=== PATIENT | male | born 1995 | race African-American/Black ===

== ENCOUNTER 2019-07-14 15:46 | Emergency (ER) | payer OTHER ==
--- NOTE | 2019-07-14 18:41 | ED Physician Documentation ---
PD HPI MALE - Stated complaint Stated Complaint: MALE - Chief complaint Chief Complaint: General - History obtained from History obtained from: Patient - History of Present Illness Timing - onset: Today Timing - duration: Days (1) Timing - details: Abrupt onset, Still present Associated symptoms: Urinary frequency, Discharge. No: Dysuria, Genital sore / lesion, Back pain PD HPI MALE CONTRIB FACTORS: Sexually active, Other (had new sexual partner recently, without apparent STDs.) Similar symptoms before: Has not had sx before Review of Systems Constitutional: denies: Fever, Chills Throat: denies: Sore throat GI: denies: Abdominal Pain, Nausea, Vomiting : reports: Frequency, Discharge. denies: Dysuria Skin: denies: Rash PD PAST MEDICAL HISTORY - Past Medical History Cardiovascular: None Respiratory: None : None - Allergies Allergies/Adverse Reactions: Allergies Allergy/AdvReac Type Severity Reaction Status Date / Time No Known Drug Allergies Allergy Verified 07/14/19 16:03 PD ED PE NORMAL - Vitals Vital signs reviewed: Yes - General General: Alert and oriented X 3, Well developed/nourished - Abdomen Abdomen: Soft, Non tender - Male Male : Deferred - Rectal Rectal: Deferred - Back Back: No CVA TTP Results - Vitals Vitals: Vital Signs - 24 hr 07/14/19 07/14/19 16:03 19:33 Temperature 36.8 C 36.9 C Heart Rate 93 96 Respiratory 17 16 Rate Blood Pressure 126/84 H 123/78 O2 Saturation 98 97 Oxygen O2 Source Room air - Labs Labs: Laboratory Tests 07/14/19 16:15 Chlam trachomat DNA PCR POSITIVE A N.gonorrhoeae DNA (PCR) POSITIVE A T. vaginalis (PCR) TNP PD MEDICAL DECISION MAKING - ED course Complexity details: reviewed results (the urine results came back hours after he was discharged, and was positive for GC and chlamydia. Had been treated for these. Nurse will call him though to confirm Dx and advise him to contact his sexual partners. ), considered differential, d/w patient Departure - Departure Disposition: 01 Home, Self Care Clinical Impression: Urethritis Condition: Stable Record reviewed to determine appropriate education?: Yes Instructions: ED STD Male Treated Follow-Up: CANDELARIO Luke [Provider Group] Comments: The urine test has not resulted and may be several more hours or into tomorrow. We have treated you for the common STIs. We will call you if we need to add any antibiotics based on the urine test results. Right now you are covered for chlamydia and gonorrhea. Symptoms should improve over the next couple of days. Discharge Date/Time: 07/14/19 19:33
[2019-07-14] MEDS ORDERED: LIDOCAINE 1% 2 ML VIAL MC ONE (18:49)
[2019-07-14] MEDS ORDERED: cefTRIAXone 1 GM VIAL IM STA (18:49)
[2019-07-14] MEDS ORDERED: AZITHROMYCIN 250 MG TABLET PO STA (18:49)
[2019-07-14 19:34] VITALS: BP 123/78
== END 2019-07-14 19:33 | disposition home or self-care (01) ==
LOC: ED 15:46
DX: N34.2 Other urethritis (principal)
CPT/HCPCS: 87491; 87591; 96372; 99283; A9270; 87661

== ENCOUNTER 2019-12-10 01:17 | Emergency (ER) | payer OTHER ==
--- NOTE | 2019-12-10 01:53 | ED Physician Documentation ---
PD HPI MALE - Stated complaint Stated Complaint: MALE - Chief complaint Chief Complaint: General - History obtained from History obtained from: Patient - History of Present Illness Timing - onset: How many days ago (2) Timing - duration: Days (2) Timing - details: Gradual onset, Still present Associated symptoms: Dysuria, Discharge (clear watery to white). No: Genital sore / lesion, Testiclar pain, Scrotal swelling PD HPI MALE CONTRIB FACTORS: Sexually active (had used condoms, so felt safe from STDs.) Similar symptoms before: Diagnosis (had chlamydia in the past) Recently seen: Not recently seen Review of Systems Constitutional: denies: Fever, Chills Throat: denies: Oral lesions / sores, Sore throat GI: denies: Abdominal Pain, Nausea, Vomiting : reports: Dysuria, Discharge. denies: Hematuria Skin: denies: Rash, Lesions PD PAST MEDICAL HISTORY - Past Medical History Cardiovascular: None Respiratory: None Neuro: None Endocrine/Autoimmune: None GI: None : None HEENT: None Psych: Depression Musculoskeletal: None Derm: None - Past Surgical History Past Surgical History: No - Present Medications Home Medications: Ambulatory Orders Medication Instructions Recorded Confirmed No Known Home Medications 12/10/19 12/10/19 - Allergies Allergies/Adverse Reactions: Allergies Allergy/AdvReac Type Severity Reaction Status Date / Time No Known Drug Allergies Allergy Verified 07/14/19 16:03 - Social History Does the pt smoke?: No Smoking Status: Never smoker Does the pt drink ETOH?: Yes Does the pt have substance abuse?: No PD ED PE NORMAL - Vitals Vital signs reviewed: Yes - General General: Alert and oriented X 3, No acute distress, Well developed/nourished - Abdomen Abdomen: Soft, Non tender - Male Male : Other (no scrotal swelling nor tenderness. No inguinal adenopathy. Penis without sores nor redness. Minimal meatal clear watery discharge. ) - Rectal Rectal: Deferred - Back Back: No CVA TTP - Derm Derm: Normal color, Warm and dry Results - Vitals Vitals: Vital Signs - 24 hr 12/10/19 12/10/19 01:25 03:00 Temperature 36.2 C L 36.5 C Heart Rate 70 72 Respiratory 16 16 Rate Blood Pressure 123/80 127/90 H O2 Saturation 98 99 Oxygen O2 Source Room air PD MEDICAL DECISION MAKING - ED course Complexity details: considered differential (most likely chlamydia and will treat empirically. Swab obtained from meatus. ), d/w patient Departure - Departure Disposition: 01 Home, Self Care Clinical Impression: Urethritis Condition: Stable Record reviewed to determine appropriate education?: Yes Instructions: ED Urethritis Infec Vs Inflam Male Follow-Up: CANDELARIO Dickersonashley Luke [Provider Group] Comments: The urethral culture will result in a day or 2. We treated you for chlamydia and gonorrhea in case. These are likely causes. We will call you with the culture result if we need to add any other medicines. I would anticipate improvement in your symptoms over the next couple of days. Discharge Date/Time: 12/10/19 03:00
[2019-12-10] MEDS ORDERED: cefTRIAXone 1 GM VIAL IM STA (02:17)
[2019-12-10] MEDS ORDERED: LIDOCAINE 1% 2 ML VIAL MC ONE (02:17)
[2019-12-10] MEDS ORDERED: AZITHROMYCIN 250 MG TABLET PO STA (02:17)
[2019-12-10 03:47] VITALS: BP 127/90
== END 2019-12-10 03:00 | disposition home or self-care (01) ==
LOC: ED 01:17
DX: A56.01 Chlamydial cystitis and urethritis (principal)
CPT/HCPCS: 87491; 87591; 96372; 99283; A9270; 87661

== ENCOUNTER 2019-12-23 05:28 | Outpatient (CLI) | payer OTHER | END 2019-12-23 05:29 | disposition home or self-care (01) | LOC: LAB 05:28 | PROVIDERS: ATTEND Pathology Blood Banking & Transfusion Medicine | DX: Z53.9 Procedure and treatment not carried out, unspecified reason (principal) ==

== ENCOUNTER 2020-02-05 23:11 | Emergency (ER) | payer OTHER ==
[2020-02-05 23:23] VITALS: BP 139/79
[2020-02-05 23:37] LABS: BILIRUBIN,URINE NEGATIVE (NEGATIVE); GLUCOSE, URINE (UA) NEGATIVE (NEGATIVE); KETONES,URINE (UA) NEGATIVE (NEGATIVE); LEUKOCYTE ESTERASE, URINE NEGATIVE (NEGATIVE); NITRITE,URINE NEGATIVE (NEGATIVE); OCCULT BLOOD,URINE NEGATIVE (NEGATIVE); PROTEIN,URINE NEGATIVE (NEGATIVE); UROBILINOGEN,URINE 1 (NORMAL) E.U./dL (NORMAL)
[2020-02-05 23:39] LABS: CLARITY,URINE CLEAR (CLEAR)
--- NOTE | 2020-02-06 00:01 | ED Physician Documentation ---
PD HPI MALE - Stated complaint Stated Complaint: STRINGY PEE - Chief complaint Chief Complaint: General - History obtained from History obtained from: Patient - History of Present Illness Timing - onset: How many days ago (few days of noting some clumps or stringy mucous in his urine. Concerned about infection. Denies dysuria. No penile discharge.) Timing - duration: Weeks (has noted it intermittent the past 3 weeks. Improves when drinks more fluids, but has not gone away.) Timing - details: Intermittant Associated symptoms: No: Dysuria, Genital sore / lesion, Testiclar pain, Scrotal swelling PD HPI MALE CONTRIB FACTORS: Sexually active (not for few months) Similar symptoms before: Has not had sx before Recently seen: Clinic (follow up of head injury that occurred few months prior.) Review of Systems Constitutional: denies: Fever, Chills Nose: denies: Rhinorrhea / runny nose, Congestion Throat: denies: Sore throat Respiratory: denies: Cough GI: denies: Abdominal Pain : reports: Hematuria (or at least he is concerned about that, and about infection). denies: Dysuria, Frequency, Discharge PD PAST MEDICAL HISTORY - Past Medical History Past Medical History: No Cardiovascular: None Respiratory: None Neuro: None Endocrine/Autoimmune: None GI: None : None HEENT: None Psych: Depression Musculoskeletal: None Derm: None - Past Surgical History Past Surgical History: No - Present Medications Home Medications: Ambulatory Orders Medication Instructions Recorded Confirmed No Known Home Medications 12/10/19 12/10/19 - Allergies Allergies/Adverse Reactions: Allergies Allergy/AdvReac Type Severity Reaction Status Date / Time No Known Drug Allergies Allergy Verified 02/05/20 23:23 - Social History Does the pt smoke?: No Smoking Status: Never smoker Does the pt drink ETOH?: Yes Does the pt have substance abuse?: No - Immunizations Immunizations are current?: Yes - POLST Patient has POLST: No Results - Vitals Vitals: Vital Signs - 24 hr 02/05/20 02/06/20 23:21 00:27 Temperature 36.9 C Heart Rate 93 Respiratory 16 16 Rate Blood Pressure 139/79 H O2 Saturation 96 Oxygen O2 Source Room air - Labs Labs: Laboratory Tests 02/05/20 23:20 Urine Color YELLOW Urine Clarity CLEAR Urine pH 8.0 H Ur Specific [place] 1.020 Urine Protein NEGATIVE Urine Glucose (UA) NEGATIVE Urine Ketones NEGATIVE Urine Occult Blood NEGATIVE Urine Nitrite NEGATIVE Urine Bilirubin NEGATIVE Urine Urobilinogen 1 (NORMAL) Ur Leukocyte Esterase NEGATIVE Ur Microscopic Review NOT INDICATED Urine Culture Comments NOT INDICATED PD MEDICAL DECISION MAKING - ED course Complexity details: reviewed results (normal. no signs of infection. ), considered differential (eval for infection.), d/w patient Departure - Departure Disposition: 01 Home, Self Care Clinical Impression: Urine abnormality Condition: Stable Record reviewed to determine appropriate education?: Yes Follow-Up: CANDELARIO Luke [Provider Group] Comments: There is no signs of brewster in the initial urinalysis. The culture from the penis will result in 1 or 2 days we will call you if there is any signs of infection. Otherwise I assume some of the stringiness is just sediment (cells from the lining of the bladder clumping up). Stay well-hydrated and presumably this will clear up. Discharge Date/Time: 02/06/20 00:27
== END 2020-02-06 00:27 | disposition home or self-care (01) ==
LOC: ED 23:11
DX: R82.998 Other abnormal findings in urine (principal)
CPT/HCPCS: 81001; 81003; 81599; 87086; 87491; 87591; 87661; 99283; 99284

== ENCOUNTER 2020-05-17 12:48 | Outpatient (CLI) | payer OTHER ==
--- NOTE | 2020-05-19 09:06 | MRI Report ---
PROCEDURE: Brain W/O INDICATIONS: CONCUSSION W/O LOSS OF CONSCIOUSNESS TECHNIQUE: Noncontrast axial T1 spin echo, axial T2 fast spin echo, sagittal and axial FLAIR, coronal T2 fast sp in echo, axial gradient echo, axial diffusion and ADC through the brain. COMPARISON: None. FINDINGS: Image quality: Excellent. CSF Spaces: Basal cisterns are patent. No extra-axial fluid collections. Ventricles are normal in size and shape. Brain: No intracranial masses or hemorrhage. Rodriguez/white matter interface is normal. Brainstem appe ars normal. Diffusion-weighted images demonstrate no acute ischemic insult. No chronic ischemic ins ults. There are multiple tiny foci of hemosiderin deposition in the scattered distribution, some of w hich are subarachnoid in location. Additionally, on image 14/701, there is a focal anterior left fron foreign deep white matter hemosiderin deposition, and on images 12 through 14 of series 701, there is a r elatively localized, fairly linear area of multifocal hemosiderin deposition. Normal intravascular f low voids are present. Skull and face: Calvarium has normal marrow signal. Orbits appear normal. Sinuses: Sinuses and mastoids are clear. IMPRESSION: 1. There are multifocal areas of tiny foci of hemosiderin deposition, both centered in deep white mat ter structures as well as in a subarachnoid location. Findings may represent sequelae of remote traum a. However, cannot exclude vascular malformations. 2. Otherwise unremarkable study with no evidence of acute stroke, hemorrhage, or mass. Brain parenchy ma is otherwise unremarkable. Comment: Recommend completion of workup of multifocal tiny previous hemorrhage, to include Brain MRI With Contrast, as well as MRA head. Reviewed by: Ricky Boston MD on 05/19/2020 9:05 AM PST Approved by: Ricky Boston MD on 05/19/2020 9:05 AM PST Station ID: [id number]
== END 2020-05-17 12:49 | disposition home or self-care (01) ==
LOC: DI 12:48
PROVIDERS: ATTEND Family Medicine
DX: S06.0X0A Concussion without loss of consciousness, initial encounter (principal)
CPT/HCPCS: 70551

== ENCOUNTER 2021-01-23 20:55 | Emergency (ER) | payer OTHER ==
--- NOTE | 2021-01-23 21:02 | ED Physician Documentation ---
PD HPI MALE - Stated complaint Stated Complaint: MALE - Chief complaint Chief Complaint: General - History obtained from History obtained from: Patient - History of Present Illness Timing - onset: How many days ago (1-2) Timing - details: Gradual onset, Intermittant Pain level now: 0 Associated symptoms: Discharge. No: Dysuria, Urinary frequency, Hematuria, Genital sore / lesion, Testiclar pain, Scrotal swelling Similar symptoms before: Diagnosis (some similarity to previous episode of chlamydia) - Additional information Additional information: c/o 1-2 days of intermittent clear penile discharge. He is sexually active. He has h/o chlamydia and he says the discharge has some similarity to that episode (he says the discharge was more cloudy and frequent with chlamydia, though). Review of Systems Constitutional: denies: Fever GI: reports: Reviewed and negative : reports: Discharge. denies: Dysuria, Frequency, Hematuria Skin: denies: Rash PD PAST MEDICAL HISTORY - Past Medical History Cardiovascular: None Respiratory: None Neuro: None Endocrine/Autoimmune: None GI: None : None HEENT: None Psych: Depression Musculoskeletal: None Derm: None - Past Surgical History Past Surgical History: No - Present Medications Home Medications: Ambulatory Orders Medication Instructions Recorded Confirmed No Known Home Medications 12/10/19 01/23/21 - Allergies Allergies/Adverse Reactions: Allergies Allergy/AdvReac Type Severity Reaction Status Date / Time No Known Drug Allergies Allergy Verified 01/23/21 21:04 - Social History Does the pt smoke?: No Smoking Status: Never smoker Does the pt drink ETOH?: Yes Does the pt have substance abuse?: No - Immunizations Immunizations are current?: Yes - POLST Patient has POLST: No PD ED PE NORMAL - Vitals Vital signs reviewed: Yes - General General: Alert and oriented X 3, No acute distress, Well developed/nourished PD ED PE EXPANDED - Male Male : Circumcised. No: Skin lesions, Discharge (no active discharge noted), Tenderness Results - Vitals Vitals: Vital Signs - 24 hr 01/23/21 01/23/21 21:00 21:56 Temperature 36.1 C L 37.2 C Heart Rate 105 H 77 Respiratory 16 16 Rate Blood Pressure 117/66 111/62 O2 Saturation 98 98 Oxygen O2 Source Room air PD MEDICAL DECISION MAKING - ED course Complexity details: reviewed old records, considered differential, d/w patient ED course: urine sent for GC/chlamydia/trich. Will treat empirically and he is given 500mg IM rocephin, 1000 mg zithromax PO. Departure - Departure Disposition: 01 Home, Self Care Clinical Impression: Urethritis Condition: Good Instructions: ED Urethritis Infec Vs Inflam Male Follow-Up: CANDELARIO Luke [Provider Group] Discharge Date/Time: 01/23/21 21:56
[2021-01-23] MEDS ORDERED: LIDOCAINE 1% 2 ML VIAL MC ONE ×2 (21:21→21:27)
[2021-01-23] MEDS ORDERED: cefTRIAXone 500 MG VIAL IM STA (21:21)
[2021-01-23] MEDS ORDERED: AZITHROMYCIN 250 MG TABLET PO STA (21:22)
[2021-01-23] MEDS ORDERED: cefTRIAXone 1 GM VIAL IM STA (21:27)
[2021-01-23 21:57] VITALS: BP 111/62
[2021-01-24 22:23] LABS: CHLAMYDIA TRACHOMATIS DNA NEGATIVE (NEGATIVE); NEISSERIA GONORRHOEAE DNA NEGATIVE (NEGATIVE)
== END 2021-01-23 21:56 | disposition home or self-care (01) ==
LOC: ED 20:55
DX: N34.2 Other urethritis (principal)
CPT/HCPCS: 87491; 87591; 96372; 99283; A9270; 87661

== ENCOUNTER 2021-05-04 00:39 | Emergency (ER) | payer OTHER ==
[2021-05-04] MEDS ORDERED: cefTRIAXone 250 MG VIAL ONE (02:23)
[2021-05-04] MEDS ORDERED: AZITHROMYCIN 250 MG TABLET PO ONE (02:23)
[2021-05-04] MEDS ORDERED: LIDOCAINE 1% 2 ML VIAL ONE (02:24)
--- NOTE | 2021-05-04 02:39 | ED Physician Documentation ---
History of Present Illness - Stated complaint Stated Complaint: MALE - Chief complaint Chief Complaint: General - History obtained from History obtained from: Patient - Additonal information Additional information: Patient comes emergency department chief complaint of penile discharge. He states that he began to notice the discharge this morning and that has been a white, creamy appearing, steady ooze. No bleeding. Patient states he has had chlamydia before and this seems similar. He has not had any fevers or chills. No abdominal pain. Minimal dysuria. He does not know of any sexual partner that has had symptoms of sexually transmitted disease. No other complaints at this time. Review of Systems Ten Systems: 10 systems reviewed and negative Constitutional: reports: Reviewed and negative Eyes: reports: Reviewed and negative Ears: reports: Reviewed and negative Nose: reports: Reviewed and negative Throat: reports: Reviewed and negative Cardiac: reports: Reviewed and negative Respiratory: reports: Reviewed and negative GI: reports: Reviewed and negative : reports: Discharge Skin: reports: Reviewed and negative Musculoskeletal: reports: Reviewed and negative Neurologic: reports: Reviewed and negative Psychiatric: reports: Reviewed and negative Endocrine: reports: Reviewed and negative Immunocompromised: reports: Reviewed and negative PD PAST MEDICAL HISTORY - Past Medical History Past Medical History: Yes Cardiovascular: None Respiratory: None Neuro: None Endocrine/Autoimmune: None GI: None : None HEENT: None Psych: Depression Musculoskeletal: None Derm: None Other Past Medical History: Chlamydia - Past Surgical History Past Surgical History: No - Present Medications Home Medications: Ambulatory Orders Medication Instructions Recorded Confirmed No Known Home Medications 12/10/19 05/04/21 - Allergies Allergies/Adverse Reactions: Allergies Allergy/AdvReac Type Severity Reaction Status Date / Time No Known Drug Allergies Allergy Verified 05/04/21 00:49 - Social History Does the pt smoke?: No Smoking Status: Never smoker Does the pt drink ETOH?: Yes Does the pt have substance abuse?: No - Immunizations Immunizations are current?: Yes - POLST Patient has POLST: No PD ED PE NORMAL - Vitals Vital signs reviewed: Yes - General General: Alert and oriented X 3, No acute distress, Well developed/nourished - HEENT HEENT: Atraumatic, PERRL, EOMI, Moist mucous membranes - Neck Neck: Supple, no meningeal sign - Respiratory Respiratory: No respiratory distress - Male Male : Other (Normal male genitalia, circumcised. Whitish discharge noted in the urethral meatus. No penile lesions.) - Derm Derm: Warm and dry - Extremities Extremities: No deformity - Neuro Neuro: Alert and oriented X 3 - Psych Psych: Normal mood, Normal affect Results - Vitals Vitals: Vital Signs - 24 hr 05/04/21 05/04/21 00:40 03:00 Temperature 36.1 C L 36.9 C Heart Rate 98 80 Respiratory 16 16 Rate Blood Pressure 143/97 H 133/75 H O2 Saturation 97 99 Oxygen O2 Source Room air PD MEDICAL DECISION MAKING - ED course Complexity details: considered differential, d/w patient ED course: Patient was worked up with a GC chlamydia trichomonas PCR, and was treated presumptively for gonorrhea and chlamydia with IM Rocephin and single dose Zithromax. We discussed with the patient that he should not have intercourse with anybody that he has slept within the last 3 weeks, until they get treated. He should also let any other sexual partners no of his symptoms so they can get treated and tested also. The patient is advised to have no sexual contact with anybody until his symptoms are completely gone. Departure - Departure Disposition: 01 Home, Self Care Clinical Impression: Urethritis Condition: Stable Discharge Date/Time: 05/04/21 03:00
[2021-05-04] MEDS ORDERED: predniSONE 20 MG TABLET ONE (02:41)
[2021-05-04 03:02] VITALS: BP 133/75
[2021-05-04 04:15] LABS: CHLAMYDIA TRACHOMATIS DNA NEGATIVE (NEGATIVE); NEISSERIA GONORRHOEAE DNA NEGATIVE (NEGATIVE)
== END 2021-05-04 03:00 | disposition home or self-care (01) ==
LOC: ED 00:39
DX: N34.2 Other urethritis (principal)
CPT/HCPCS: 87491; 87591; 96372; 99283; 99284; A9270; J7512; 87661

== ENCOUNTER 2021-05-06 17:53 | Emergency (ER) | payer OTHER ==
[2021-05-06 18:00] VITALS: BP 146/101
[2021-05-06 18:20] LABS: BILIRUBIN,URINE NEGATIVE (NEGATIVE); CLARITY,URINE CLEAR (CLEAR); GLUCOSE, URINE (UA) NEGATIVE (NEGATIVE); KETONES,URINE (UA) NEGATIVE (NEGATIVE); LEUKOCYTE ESTERASE, URINE NEGATIVE (NEGATIVE); NITRITE,URINE NEGATIVE (NEGATIVE); OCCULT BLOOD,URINE NEGATIVE (NEGATIVE); PROTEIN,URINE NEGATIVE (NEGATIVE); UROBILINOGEN,URINE 0.2 (NORMAL) E.U./dL (NORMAL)
--- NOTE | 2021-05-06 19:57 | ED Physician Documentation ---
PD HPI MALE - Stated complaint Stated Complaint: MALE - Chief complaint Chief Complaint: UTI - History obtained from History obtained from: Patient - History of Present Illness Timing - duration: Days (4) Timing - details: Gradual onset Pain level max: 1 Pain level now: 1 Associated symptoms: No: Dysuria, Urinary frequency, Unable to urinate, Hematuria, Genital sore / lesion, Testiclar pain, Scrotal swelling, Abdominal pain, Back pain PD HPI MALE CONTRIB FACTORS: Sexually active - Additional information Additional information: Patient is a 26-year-old male who states that 4 days ago he noticed slight discharge from his penis. He states it was cloudy/milky in color. He does not have any dysuria, no pain with ejaculation. He states that occasionally his ejaculate fluid is more watery than usual and/or has a yellow tint. He has had chlamydia in the past. Patient has been seen here recently for same. He was given Rocephin and azithromycin. States feels better but still has slight discharge and tingling. Review of Systems Constitutional: denies: Fever, Chills Cardiac: denies: Chest pain / pressure Respiratory: denies: Cough GI: denies: Vomiting, Diarrhea Skin: denies: Rash Musculoskeletal: denies: Neck pain, Back pain Neurologic: denies: Headache PD PAST MEDICAL HISTORY - Past Medical History Cardiovascular: None Respiratory: None Neuro: None Endocrine/Autoimmune: None GI: None : None HEENT: None Psych: Depression Musculoskeletal: None Derm: None - Past Surgical History Past Surgical History: No - Present Medications Home Medications: Ambulatory Orders Medication Instructions Recorded Confirmed Doxycycline Monohydrate 100 mg PO BID #28 cap 05/06/21 - Allergies Allergies/Adverse Reactions: Allergies Allergy/AdvReac Type Severity Reaction Status Date / Time No Known Drug Allergies Allergy Verified 05/06/21 17:57 - Social History Does the pt smoke?: No Smoking Status: Never smoker Does the pt drink ETOH?: Yes Does the pt have substance abuse?: No - Immunizations Immunizations are current?: Yes - POLST Patient has POLST: No PD ED PE NORMAL - Vitals Vital signs reviewed: Yes - General General: Alert and oriented X 3, No acute distress - HEENT HEENT: Moist mucous membranes - Neck Neck: Supple, no meningeal sign - Cardiac Cardiac: RRR - Respiratory Respiratory: No respiratory distress, Clear bilaterally - Abdomen Abdomen: Soft, Non tender, Non distended - Male Male : Other (Normal genital exam. Normal testicular exam. No discharge. No lymphadenopathy. No sores) - Derm Derm: Warm and dry - Neuro Neuro: Alert and oriented X 3 - Psych Psych: Normal mood, Normal affect Results - Vitals Vitals: Vital Signs - 24 hr 05/06/21 05/06/21 17:57 18:04 Temperature 36.9 C 36.9 C Heart Rate 95 95 Respiratory 18 16 Rate Blood Pressure 146/101 H 146/101 H O2 Saturation 99 99 Oxygen O2 Source Room air - Labs Labs: Laboratory Tests 05/06/21 05/06/21 18:04 18:04 Urine Color YELLOW Urine Clarity CLEAR Urine pH 6.0 Ur Specific [place] 1.020 Urine Protein NEGATIVE Urine Glucose (UA) NEGATIVE Urine Ketones NEGATIVE Urine Occult Blood NEGATIVE Urine Nitrite NEGATIVE Urine Bilirubin NEGATIVE Urine Urobilinogen 0.2 (NORMAL) Ur Leukocyte Esterase NEGATIVE Ur Microscopic Review NOT INDICATED Urine Culture Comments NOT INDICATED Chlam trachomat DNA PCR NEGATIVE N.gonorrhoeae DNA (PCR) NEGATIVE T. vaginalis (PCR) TNP PD MEDICAL DECISION MAKING - ED course Complexity details: reviewed results, considered differential, d/w patient ED course: Unclear etiology the patient's symptoms. Gonorrhea and Chlamydia testing are both negative. We have sent off syphilis testing. Given penicillin IM. We will also place him on doxycycline for home. Recommend full STD panel testing with his doctor including HIV testing. Patient counseled regarding signs and symptoms for which I believe and urgent re-evaluation would be necessary. Patient with good understanding of and agreement to plan and is comfortable going home at this time This document was made in part using voice recognition software. While efforts are made to proofread this document, sound alike and grammatical errors may occur. Departure - Departure Disposition: Home, Self Care Clinical Impression: Urethritis Condition: Good Instructions: ED Urethritis Infec Vs Inflam Male Follow-Up: your,doctor in 1 week [Other] Prescriptions: Doxycycline Monohydrate 100 mg PO BID #28 cap Comments: You should follow-up with your doctor for full STD testing including HIV testing. Please return if you worsen. Your prescription was sent to the [facility] in [place]. The syphilis test is a send out test that may take 2 to 3 days to result. Take all antibiotics until gone. Discharge Date/Time: 05/06/21 20:30
[2021-05-06] MEDS: DOXYCYCLINE 100 MG TABLET PO STA (20:22)
[2021-05-06] MEDS: PENICILLIN G BENZATHINE 600,000 UNIT/ML SYRINGE IM STA ×2 (20:22→20:28)
[2021-05-06 21:29] LABS: CHLAMYDIA TRACHOMATIS DNA NEGATIVE (NEGATIVE); NEISSERIA GONORRHOEAE DNA NEGATIVE (NEGATIVE)
== END 2021-05-06 20:30 | disposition home or self-care (01) ==
LOC: ED 17:53
DX: N34.2 Other urethritis (principal)
CPT/HCPCS: 81003; 86592; 87491; 87591; 96372; 99283; A9270; 81001; 87086; 87661

== ENCOUNTER 2021-05-13 16:04 | Emergency (ER) | payer OTHER ==
[2021-05-13 16:14] VITALS: BP 125/79
--- NOTE | 2021-05-13 16:32 | ED Physician Documentation ---
History of Present Illness - Stated complaint Stated Complaint: MALE - Chief complaint Chief Complaint: General - History obtained from History obtained from: Patient - Additonal information Additional information: 26-year-old gentleman who is sexually active who has been seen several times lately for urethritis, he has persistently tested negative for gonorrhea and chlamydia and has been treated for same anyway. He wonders if he might have trichomonas, noting that our lab will not do trichomonas testing as far as I can tell on samples from men. He persistently has milky discharge from his penis without significant dysuria. Review of Systems Constitutional: reports: Reviewed and negative Cardiac: reports: Reviewed and negative Respiratory: reports: Reviewed and negative PD PAST MEDICAL HISTORY - Past Medical History Past Medical History: Yes Cardiovascular: None Respiratory: None Neuro: None Endocrine/Autoimmune: None GI: None : None HEENT: None Psych: Depression Musculoskeletal: None Derm: None - Past Surgical History Past Surgical History: No - Present Medications Home Medications: Ambulatory Orders Medication Instructions Recorded Confirmed metroNIDAZOLE [Flagyl] 500 mg PO BID 7 Days #14 tablet 05/13/21 - Allergies Allergies/Adverse Reactions: Allergies Allergy/AdvReac Type Severity Reaction Status Date / Time No Known Drug Allergies Allergy Verified 05/13/21 16:14 - Social History Does the pt smoke?: No Smoking Status: Never smoker Does the pt drink ETOH?: Yes Does the pt have substance abuse?: No - Immunizations Immunizations are current?: Yes - POLST Patient has POLST: No PD ED PE NORMAL - Vitals Vital signs reviewed: Yes - General General: Alert and oriented X 3, No acute distress - Male Male : Other (Very small amount of white milky discharge expressible from the distal urethra, no sores.) - Neuro Neuro: Alert and oriented X 3, Normal speech Results - Vitals Vitals: Vital Signs - 24 hr 05/13/21 16:11 Temperature 36.3 C L Heart Rate 76 Respiratory 16 Rate Blood Pressure 125/79 O2 Saturation 97 Oxygen O2 Source Room air PD MEDICAL DECISION MAKING - ED course Complexity details: reviewed old records (Discussed with him that we cannot test per se for) ED course: Discussed with him that we cannot test per se for trich in males but seems reasonable to treat given persistent negative testing for That given negative testing for more common pathogens. Departure - Departure Disposition: 01 Home, Self Care Clinical Impression: Urethritis Condition: Good Record reviewed to determine appropriate education?: Yes Instructions: ED Urethritis Infec Vs Inflam Male Prescriptions: metroNIDAZOLE [Flagyl] 500 mg PO BID 7 Days #14 tablet Comments: Prescription sent to [facility] in [place]. We are treating for potential trichomonas given recent engative testing x2 for more common causes, gonorrhea and chlamydia. Call your doctor to arrange a follow-up appointment, make the next available appointment. In the interim, return anytime if worse or if new symptoms develop.
== END 2021-05-13 16:37 | disposition home or self-care (01) ==
LOC: ED 16:04
DX: N34.2 Other urethritis (principal)
CPT/HCPCS: 99282; 99283

== ENCOUNTER 2021-05-20 16:55 | Emergency (ER) | payer OTHER ==
[2021-05-20 17:26] VITALS: BP 124/82
--- NOTE | 2021-05-20 17:44 | ED Physician Documentation ---
History of Present Illness - Stated complaint Stated Complaint: MALE - Chief complaint Chief Complaint: General - History obtained from History obtained from: Patient - Additonal information Additional information: 26-year-old gentleman has been treated over the last month for recalcitrant urethritis. Most recently he wondered if he might have trichomonas and was treated for that with Flagyl and he is definitely been improving. He ran out yesterday and has just a very mild amount of drainage today and wonders if it might be coming back or if he needs a longer course. No significant side ef fects from the Flagyl. Review of Systems Constitutional: reports: Reviewed and negative Ears: reports: Reviewed and negative Nose: reports: Reviewed and negative Throat: reports: Reviewed and negative PD PAST MEDICAL HISTORY - Past Medical History Cardiovascular: None Respiratory: None Neuro: None Endocrine/Autoimmune: None GI: None : None HEENT: None Psych: Depression Musculoskeletal: None Derm: None - Past Surgical History Past Surgical History: No - Present Medications Home Medications: Ambulatory Orders Medication Instructions Recorded Confirmed metroNIDAZOLE [Flagyl] 500 mg PO BID 7 Days #14 tablet 05/13/21 metroNIDAZOLE [Flagyl] 500 mg PO BID 7 Days #14 tablet 05/20/21 - Allergies Allergies/Adverse Reactions: Allergies Allergy/AdvReac Type Severity Reaction Status Date / Time No Known Drug Allergies Allergy Verified 05/20/21 17:26 - Social History Does the pt smoke?: No Smoking Status: Never smoker Does the pt drink ETOH?: Yes Does the pt have substance abuse?: No - Immunizations Immunizations are current?: Yes - POLST Patient has POLST: No PD ED PE NORMAL - Vitals Vital signs reviewed: Yes - General General: Alert and oriented X 3, No acute distress - Back Back: No CVA TTP, No spinal TTP - Derm Derm: Normal color, Warm and dry - Extremities Extremities: No edema, No calf tenderness / cord - Neuro Neuro: Alert and oriented X 3, Normal speech Results - Vitals Vitals: Vital Signs - 24 hr 05/20/21 17:18 Temperature 36.8 C Heart Rate 99 Respiratory 16 Rate Blood Pressure 124/82 H O2 Saturation 99 Oxygen O2 Source Room air PD MEDICAL DECISION MAKING - ED course ED course: 26-year-old gentleman with presumed trichomonas urethritis who is improving on Flagyl but still with some persistent symptoms and retreated with Flagyl again. Discussed with him that given that he has had about 5 visits this month for urethritis with negative cultures he should probably follow-up with urology. Departure - Departure Disposition: 01 Home, Self Care Clinical Impression: Urethritis Condition: Good Record reviewed to determine appropriate education?: Yes Instructions: ED Urethritis Infec Vs Inflam Male Prescriptions: metroNIDAZOLE [Flagyl] 500 mg PO BID 7 Days #14 tablet Comments: As discussed, if you have further problems or recurrence [place]. Return for new or worsening symptoms. I sent your prescriptions electronically to [facility]. Discharge Date/Time: 05/20/21 17:45
== END 2021-05-20 17:45 | disposition home or self-care (01) ==
LOC: ED 16:55
DX: A59.03 Trichomonal cystitis and urethritis (principal)
CPT/HCPCS: 99282; 99283

== ENCOUNTER 2021-06-02 15:41 | Emergency (ER) | payer OTHER ==
[2021-06-02 15:49] VITALS: BP 127/88
[2021-06-02 16:06] LABS: BILIRUBIN,URINE NEGATIVE (NEGATIVE); GLUCOSE, URINE (UA) NEGATIVE (NEGATIVE); KETONES,URINE (UA) TRACE mg/dL (NEGATIVE); LEUKOCYTE ESTERASE, URINE NEGATIVE (NEGATIVE); NITRITE,URINE NEGATIVE (NEGATIVE); OCCULT BLOOD,URINE SMALL (NEGATIVE); PROTEIN,URINE TRACE mg/dL (NEGATIVE); UROBILINOGEN,URINE 0.2 (NORMAL) E.U./dL (NORMAL)
[2021-06-02 16:08] LABS: CLARITY,URINE HAZY (CLEAR)
[2021-06-02 16:12] LABS: WBC,URINE 0-3 /HPF (0-3)
[2021-06-02 16:13] LABS: BACTERIA,URINE None Seen /HPF (None Seen); SQUAMOUS EPITHELIAL CELL,UR NONE SEEN (<= Few)
--- NOTE | 2021-06-02 16:25 | ED Physician Documentation ---
History of Present Illness - Stated complaint Stated Complaint: STI/STD SYMPTOMS - Chief complaint Chief Complaint: General - Additonal information Additional information: 26-year-old male return to the emergency department for concerns that he is having recurrent clear penile discharge. This is his fourth ED encounter since April for similar. He has had multiple test for gonorrhea, chlamydia as well as syphilis all of which has been negative. He has completed a full course of doxycycline as well as 2 prescriptions for Flagyl. He was concerned that he could have trichomonas as the Flagyl seemed to improve his symptoms. He fin ished his last dose 2 days ago. Intermittently today he has had some clear penile discharge. He denies that this discharge occurs before or after erection. He has not been sexually active. He denies dysuria urgency or frequency. No testicular pain or swelling. No genital lesions or sores. Review of Systems Constitutional: reports: Reviewed and negative Ears: reports: Reviewed and negative Nose: reports: Reviewed and negative Cardiac: reports: Reviewed and negative Respiratory: reports: Reviewed and negative GI: reports: Reviewed and negative : reports: Discharge. denies: Dysuria, Frequency, Hesitancy, Hematuria, Testicular pain, Testicular mass Skin: reports: Reviewed and negative PD PAST MEDICAL HISTORY - Past Medical History Cardiovascular: None Respiratory: None Neuro: None Endocrine/Autoimmune: None GI: None : None HEENT: None Psych: Depression Musculoskeletal: None Derm: None - Past Surgical History Past Surgical History: No - Present Medications Home Medications: Ambulatory Orders Medication Instructions Recorded Confirmed No Known Home Medications 06/02/21 06/02/21 - Allergies Allergies/Adverse Reactions: Allergies Allergy/AdvReac Type Severity Reaction Status Date / Time No Known Drug Allergies Allergy Verified 06/02/21 15:46 - Social History Does the pt smoke?: No Smoking Status: Never smoker Does the pt drink ETOH?: Yes Does the pt have substance abuse?: No - Immunizations Immunizations are current?: Yes - POLST Patient has POLST: No PD ED PE NORMAL - Male Male : Manager [address] present, Other (Normal male exam. No testicular tenderness or scrotal swelling. No genital sores or lesions. Circumcised penis. No discharge.) Results - Vitals Vitals: Vital Signs - 24 hr 06/02/21 15:46 Temperature 36.5 C Heart Rate 88 Respiratory 16 Rate Blood Pressure 127/88 H O2 Saturation 96 Oxygen O2 Source Room air - Labs Labs: Laboratory Tests 06/02/21 15:55 Urine Color YELLOW Urine Clarity HAZY Urine pH 5.0 Ur Specific Davey >=1.030 H Urine Protein TRACE Urine Glucose (UA) NEGATIVE Urine Ketones TRACE Urine Occult Blood SMALL H Urine Nitrite NEGATIVE Urine Bilirubin NEGATIVE Urine Urobilinogen 0.2 (NORMAL) Ur Leukocyte Esterase NEGATIVE Urine RBC 6-10 H Urine WBC 0-3 Ur Squamous Epith Cells NONE SEEN Urine Bacteria None Seen Ur Microscopic Review INDICATED Urine Culture Comments NOT INDICATED PD MEDICAL DECISION MAKING - ED course Complexity details: reviewed results, re-evaluated patient, d/w patient ED course: 26-year-old male return to the emergency department for concerns that he has recurrent penile discharge. This is despite taking a course of doxycycline as well as 2 courses of Flagyl. All STD testing to the capabilities of the emergency department have been negative including syphilis, gonorrhea and chlamydia. His genitourinary exam today is unremarkable. No discharge is seen. His urine does have a scant amount of blood which is new. At this time I do not feel that he would benefit from a third course of antibiotics specifically Flagyl as it would be exceedingly rare for male to have trichomonas that is not responsive to 2 courses of Flagyl. I have encouraged him to have very close follow-up with [facility] as he likely would benefit from referral to urology. Patient ensures me that he will contact [facility] tomorrow. Emergent return precautions otherwise discussed. Departure - Departure Disposition: 01 Home, Self Care Clinical Impression: Penile discharge Hematuria Qualifiers: Hematuria type: benign essential microscopic Qualified Code(s): R31.1 - Benign essential microscopic hematuria Comments: Mario weber are seen in the emergency department today for evaluation of recurrent penile discharge. On your exam at the bedside it was normal and no discharge was seen. Your urine does not show signs of infection though there was a small amount of blood in it. At this time you have completed 2 full courses of Flagyl for the possibility of trichomonas. You have also completed a course of antibiotics for the possibility that you could have had chlamydia or gonorrhea. At this time recurrent testing in the emergency department has shown that you do not have syphilis gonorrhea or chlamydia. The cause of your recurrent penile discharge is not clear. It may be a new normal for you. However you should be seen by urologist. This is a specialist that focuses only on genitourinary health. Further evaluation and testing may be available that is not available here in the emergency department. If at any point you develop fevers, have testicular pain, have scrotal swelling, fevers or milky drainage from your penis and then please return immediately to the ER for a second evaluation.
== END 2021-06-02 16:34 | disposition home or self-care (01) ==
LOC: ED 15:41
DX: R36.9 Urethral discharge, unspecified (principal); R31.1 Benign essential microscopic hematuria
CPT/HCPCS: 81001; 81003; 87086; 99281; 99283

== ENCOUNTER 2022-02-09 19:41 | Emergency (ER) | payer OTHER ==
[2022-02-09 20:15] LABS: RAPID STREP SCREEN POSITIVE (Negative)
[2022-02-09] MEDS ORDERED: PENICILLIN VK 250 MG TABLET PO STA (20:23)
[2022-02-09] MEDS ORDERED: IBUPROFEN 600 MG TABLET PO STA (20:23)
--- NOTE | 2022-02-09 20:26 | ED Physician Documentation ---
PD HPI HEENT - Stated complaint Stated Complaint: THROAT PX - Chief complaint Chief Complaint: Heent - History obtained from History obtained from: Patient - Additional information Additional information: Patient is a 26 old male with a history of strep infections presenting for evaluation of sore throat that has been present since He woke up this morning. He denies fever, cough, chest pain or difficulty breathing. He denies ear pain, congestion or rhinorrhea. He reports this feels similar to when he has had strep infections in the past. He has been able to eat solid food as well as hydrate today. He has not taken ibuprofen or acetaminophen. Review of Systems Constitutional: denies: Fever Nose: denies: Congestion Throat: reports: Sore throat Cardiac: denies: Chest pain / pressure Respiratory: denies: Dyspnea, Cough GI: denies: Abdominal Pain Musculoskeletal: denies: Neck pain Neurologic: denies: Headache PD PAST MEDICAL HISTORY - Past Medical History Cardiovascular: None Respiratory: None Neuro: None Endocrine/Autoimmune: None GI: None : None HEENT: None Psych: Depression Musculoskeletal: None Derm: None - Past Surgical History Past Surgical History: No - Present Medications Home Medications: Ambulatory Orders Medication Instructions Recorded Confirmed Ibuprofen [Motrin] 600 mg PO Q6H PRN #30 tab 02/09/22 Penicillin V Potassium 500 mg PO Q8HR 10 Days #30 tablet 02/09/22 - Allergies Allergies/Adverse Reactions: Allergies Allergy/AdvReac Type Severity Reaction Status Date / Time No Known Drug Allergies Allergy Verified 02/09/22 19:56 - Social History Does the pt smoke?: No Smoking Status: Never smoker Does the pt drink ETOH?: Yes Does the pt have substance abuse?: No - Immunizations Immunizations are current?: Yes - POLST Patient has POLST: No PD ED PE NORMAL - General General: Alert and oriented X 3, No acute distress, Well developed/nourished - HEENT HEENT: Atraumatic, Moist mucous membranes, Other (No peritonsillar abscess, No tonsillar exudate, Mild pharyngeal erythema; Uvula is midline) - Neck Neck: Supple, no meningeal sign. No: No adenopathy - Cardiac Cardiac: RRR, No murmur, Strong equal pulses - Respiratory Respiratory: No respiratory distress, Clear bilaterally - Derm Derm: Warm and dry - Extremities Extremities: No edema - Neuro Neuro: Normal speech Results - Vitals Vitals: Vital Signs - 24 hr 02/09/22 19:52 Temperature 36.6 C Heart Rate 98 Respiratory 18 Rate Blood Pressure 151/82 H O2 Saturation 99 Oxygen O2 Source Room air - Labs Labs: Laboratory Tests 02/09/22 19:59 Group A Strep Rapid POSITIVE H PD MEDICAL DECISION MAKING - ED course Complexity details: reviewed results ED course: Patient with sore throat since this morning. He is overall well-appearing with no signs of peritonsillar abscess or deep space infection. But strep is positive. Patient is agreeable to course of antibiotics.He is able to tolerate p.o. without difficulty. He is counseled on worsening symptoms to return for. Departure - Departure Disposition: Home, Self Care Clinical Impression: Strep pharyngitis Condition: Stable Instructions: ED Strep Pharyngitis Conf Prescriptions: Penicillin V Potassium 500 mg PO Q8HR 10 Days #30 tablet Ibuprofen [Motrin] 600 mg PO Q6H PRN #30 tab PRN Reason: Pain Comments: You were evaluated for sore throat and found to have a strep infection. I have started you on antibiotic called penicillin. Have sent the prescription to [facility] in [place]. I have also sent a prescription for ibuprofen which I would recommend as this may help with inflammation and discomfort. Please make sure to complete the course of the antibiotic. Please make sure to stay hydrated Frequent sips of water. If you have any worsening symptoms such as inability to swallow, difficulty breathing or any other concerns please return to the emergency department. Forms: Activity restrictions
[2022-02-09 20:29] VITALS: BP 137/68
== END 2022-02-09 20:28 | disposition home or self-care (01) ==
LOC: ED 19:41
DX: J02.0 Streptococcal pharyngitis (principal)
CPT/HCPCS: 87430; 99283; A9270

== ENCOUNTER 2022-02-24 09:19 | Outpatient (CLI) | payer OTHER ==
[2022-02-24 10:05] VITALS: BP 112/70
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
== END 2022-02-24 09:20 | disposition home or self-care (01) ==
LOC: SC 09:19
PROVIDERS: ATTEND Nurse Practitioner Family
DX: R06.83 Snoring (principal); G47.8 Other sleep disorders; R06.81 Apnea, not elsewhere classified; G47.10 Hypersomnia, unspecified; E66.3 Overweight; Z68.29 Body mass index [BMI] 29.0-29.9, adult; Z87.891 Personal history of nicotine dependence
CPT/HCPCS: 99203; 99212

== ENCOUNTER 2022-03-18 19:45 | Outpatient (CLI) | payer OTHER | END 2022-03-18 19:46 | disposition home or self-care (01) | LOC: SC 19:45 | PROVIDERS: ATTEND Nurse Practitioner Family | DX: G47.33 Obstructive sleep apnea (adult) (pediatric) (principal) | CPT/HCPCS: 95810 ==

== ENCOUNTER 2022-04-07 13:02 | Outpatient (CLI) | payer OTHER ==
[2022-04-07 13:27] VITALS: BP 114/72
--- NOTE | 2022-04-07 13:27 | SLEEP CARE CONSULTATION ---
Information from patient questionnaire entered by Esme Gaona. I have reviewed and concur with the information entered by Esme Gaona. This document represents the service I personally performed and the decisions made by me, Ana Maria Montgomery ARNP. History of Present Illness Service Date and Time: 04/07/2022 1302 Initial [place] Sleepiness Scale score: 17 (02/24/22) Current [place] Sleepiness Scale score: 16 Additional HPI information: PRATIK THORPE returns for follow up and results of the recently performed polysomnography. I explained the pathophysiology behind obstructive sleep apnea. We then spent quite a bit of time discussing different treatment options. For mild obstructive sleep apnea, surgery and oral appliance are alternatives to nasal CPAP therapy but in moderate or severe cases, nasal CPAP is the most effective and reliable treatment. Because apnea is primarily in supine position, then positional management therapy could be effective. Methods discussed such as positioning with pillows to prevent supine sleep. I reviewed the impact of weight changes on sleep apnea and strongly recommended losing weight. After some discussion, the patient opted to go with the nasal CPAP therapy. Nasal autoCPAP set at 4-15 cmH20 will be ordered with rationale explained. A manual titration study will be ordered if unable to find optimal pressure with office adjustments. I explained how CPAP machine works and what to expect when using the machine. Using CPAP every night in order to get used to it was emphasized. Patient advised to put CPAP mask on before getting into bed so as not to fall asleep without CPAP. To assist acclimation to CPAP use, it could also be used for a short time during day while reading or watching TV. The patient was instructed to call the CPAP supplier to discuss any mechanical problem that may occur. If the mask given is uncomfortable or is difficult to keep on through the night even with adjustment, contact the CPAP supplier as many will replace with another mask style if notified before 30 days. If snoring or perceives is not getting enough air or too much air from the machine, notify this office. Patient counseled not drink alcohol less than 4 hours before bedtime as it can increase snoring and apnea. Patient was cautioned about risks of drowsy driving until sleepiness symptoms resolve. Patient denies drowsy driving. Sleep Study - Results Type of Sleep Study: Polysomnography (COMPLETED 03/18/2022) Prior sleep studies: No Polysomnography/Home Sleep Study results: IMPRESSION: The quality of the study is good. The patient had slightly reduced sleep efficiency due to sleep onset insomnia. The sleep architecture was abnormal for sleep fragmentation and reduced amount of time spent in REM and slow wave sleep (N3). Respiratory monitoring showed moderate obstructive sleep apnea-hypopnea (AHI = 28.8) associated with frequent arousals, oxyhemoglobin desaturation and moderate hypoxia ([place] oxygen saturation of 70%). The respiratory events occurred more frequently during supine sleep (supine AHI = 41.7; non-supine = 22.74). Snore was moderate to loud in intensity. There was no significant periodic leg movement of sleep. Cardiac rhythm was normal sinus rhythm without significant arrhythmia. No abnormal behavior (parasomnia) observed during the night. Allergies and Home Medications Drug allergies reviewed: Yes (NKDA) Home medication list reviewed: Yes (omeprazole prescribed yesterday for heartburn) Review of Systems Review of systems same as previous: No (heartburn) Physical Exam Vital signs obtained and entered by: ESME Lucia MA Blood Pressure: 114/72 (LEFT ARM) Cuff size: regular Heart Rate: 110 O2 Saturation: 96 Height: 6 ft 2 in Weight: 237 lb 3.2 oz (with clothes/boots on) Body Mass Index: 30.4 BMI Classification: Obese Impression and Plan 1. Obstructive Sleep Apnea-Hypopnea Syndrome, moderate, with lowest oxygen saturation of 70%. Obviously this is the cause of the patients symptoms of unrefreshed sleep, and excessive daytime sleepiness. As mentioned above, the patient will be started on nasal autoCPAP therapy with pressure set at 4-15 cmH2 O. Compliance guidelines also reviewed. A copy of compliance guidelines will be given for reference at check out. Because the apnea is more severe supine, I instructed to avoid sleeping supine using pillow positioning until able to start CPAP use. 2. Hypoxemia, moderate, with a [place] oxygen saturation of 70% and 8.1 minutes spent under 90%. His baseline oxygen saturation was normal with an average oxygen saturation of 96%. 3. Obesity, unspecified. Currently patients BMI is 30.4. Obesity increases the risk of apnea, CPAP pressure requirements and overall health risks especially cardiovascular and diabetes. Thus patient is advised to lose weight. * Nasal auto CPAP therapy, pressure at 4-15 cm H2O. * Attempt to lose weight. * Avoid alcohol consumption near bedtime. * Avoid supine sleep until using CPAP. * The patient is again cautioned about driving until sleepiness completely resolves. * Return one month after CPAP obtained. I will assess response to therapy and compliance at that time. Counseling Topics: Weight loss health impact Visit Type: In Office Time Spent with Patient (minutes): 21 Provider Statement: I spent 100% of the Face to Face Visit with the patient with greater than 50% spent counseling the patient and coordination of care.
== END 2022-04-07 13:03 | disposition home or self-care (01) ==
LOC: SC 13:02
PROVIDERS: ATTEND Nurse Practitioner Family
DX: G47.33 Obstructive sleep apnea (adult) (pediatric) (principal); R09.02 Hypoxemia; E66.9 Obesity, unspecified; Z68.30 Body mass index [BMI] 30.0-30.9, adult
CPT/HCPCS: 99212; 99213

== ENCOUNTER 2022-05-05 20:23 | Emergency (ER) | payer OTHER ==
[2022-05-05 20:38] VITALS: BP 143/77
[2022-05-05] MEDS ORDERED: LIDOCAINE 1% 2 ML VIAL MC ONE (21:21)
[2022-05-05] MEDS ORDERED: cefTRIAXone 500 MG VIAL IM STA (21:21)
--- NOTE | 2022-05-05 21:24 | ED Physician Documentation ---
History of Present Illness - Stated complaint Stated Complaint: MALE - Chief complaint Chief Complaint: General - Additonal information Additional information: 27-year-old male presents emergency department for evaluation of some mild dys uria as well as white penile discharge that he began noticing yesterday evening. He does have a history of urethritis as well as chlamydia and gonorrhea. He reports a new sexual partner that he is typically been using condoms with with the exception of a sexual encounter this weekend. He is unsure of her status. He denies testicular pain or scrotal swelling. Review of Systems Constitutional: reports: Reviewed and negative Nose: reports: Reviewed and negative Cardiac: reports: Reviewed and negative : reports: Discharge (Penile discharge), Other. denies: Testicular pain PD PAST MEDICAL HISTORY - Past Medical History Past Medical History: Yes Cardiovascular: None Respiratory: None Neuro: None Endocrine/Autoimmune: None GI: None : Other HEENT: None Psych: Depression Musculoskeletal: None Derm: None Other Past Medical History: Hx of Chlamydia & Gonorrhea - Past Surgical History Past Surgical History: No - Present Medications Home Medications: Ambulatory Orders Medication Instructions Recorded Confirmed Doxycycline Hyclate 100 mg PO BID #20 cap 05/05/22 - Allergies Allergies/Adverse Reactions: Allergies Allergy/AdvReac Type Severity Reaction Status Date / Time No Known Drug Allergies Allergy Verified 05/05/22 20:34 - Social History Does the pt smoke?: No Smoking Status: Never smoker Does the pt drink ETOH?: Yes Does the pt have substance abuse?: No - Immunizations Immunizations are current?: Yes - POLST Patient has POLST: No PD ED PE EXPANDED - General General: Alert, No acute distress - Male Male : Circumcised, Discharge (Small amount of thin white penile discharge at the meatus.), Normal lie/cremastaric. No: Tenderness Results - Vitals Vitals: Vital Signs - 24 hr 05/05/22 20:35 Temperature 36.3 C L Heart Rate 88 Respiratory 16 Rate Blood Pressure 143/77 H O2 Saturation 99 Oxygen O2 Source Room air PD MEDICAL DECISION MAKING - ED course Complexity details: reviewed results, re-evaluated patient, considered differential ED course: 27-year-old male presents emergency department for evaluation of penile discharge that began yesterday evening. This follows unprotected sexual intercourse about 4 days ago. Does have a history of urethritis as well as chlamydia and gonorrhea. GC testing is pending on the urine but given history and exam we will treat empirically with ceftriaxone as well as a 10-day course of doxycycline. I have advised the patient to follow-up with [facility]. Also advising that he have his new partner tested and treated before they reengage in sexual intercourse. Unremarkable exam of the scrotum and testes. Discussed emergent return precautions. Departure - Departure Disposition: 01 Home, Self Care Clinical Impression: Abnormal penile discharge, Screen for STD (sexually transmitted disease), Urethritis Condition: Stable Record reviewed to determine appropriate education?: Yes Instructions: ED STD Male Treated, ED Urethritis Infec Vs Inflam Male Prescriptions: Doxycycline Hyclate 100 mg PO BID #20 cap Comments: Mario you came to the emergency department today because you began having some white penile discharge after having unprotected sex last weekend. I encourage you to use condoms whenever you are having sex with a new partner. We will notify you if the testing of your urine is positive for chlamydia or gonorrhea but we have chosen to treat you empirically today as though you have it. You did receive an injection of ceftriaxone here in the emergency department and a prescription for doxycycline which you will take twice daily for the next 10 days has been sent to the [facility] in [place]. With these antibiotics I would expect improvement in your penile discharge as well as the discomfort in urethra when urinating over the next few days. If you find that you develop fevers, have testicular pain or swelling, or feel that your symptoms or not improving please return to the ER for second evaluation. You should discuss this ED visit with your current partner and ask her to have STD testing and treatment before you reengage in sexual activity.
[2022-05-05 21:41] LABS: BILIRUBIN,URINE NEGATIVE (NEGATIVE); GLUCOSE, URINE (UA) NEGATIVE (NEGATIVE); KETONES,URINE (UA) NEGATIVE (NEGATIVE); LEUKOCYTE ESTERASE, URINE NEGATIVE (NEGATIVE); NITRITE,URINE NEGATIVE (NEGATIVE); OCCULT BLOOD,URINE NEGATIVE (NEGATIVE); PROTEIN,URINE NEGATIVE (NEGATIVE); UROBILINOGEN,URINE 0.2 (NORMAL) E.U./dL (NORMAL)
[2022-05-05 21:46] LABS: CLARITY,URINE CLEAR (CLEAR)
[2022-05-06 00:09] LABS: CHLAMYDIA TRACHOMATIS DNA NEGATIVE (NEGATIVE); NEISSERIA GONORRHOEAE DNA NEGATIVE (NEGATIVE)
== END 2022-05-05 22:17 | disposition home or self-care (01) ==
LOC: ED 20:23
DX: N34.2 Other urethritis (principal); Z11.3 Encounter for screening for infections with a predominantly sexual mode of transmission
CPT/HCPCS: 81001; 81003; 87086; 87491; 87591; 87661; 96372; 99282; 99283

== ENCOUNTER 2022-06-15 08:02 | Outpatient (CLI) | payer OTHER | END 2022-06-15 08:03 | disposition home or self-care (01) | LOC: DI 08:02 | PROVIDERS: ATTEND Family Medicine | DX: R00.0 Tachycardia, unspecified (principal); R94.31 Abnormal electrocardiogram [ECG] [EKG]; I51.7 Cardiomegaly | CPT/HCPCS: 93306 ==

== ENCOUNTER 2022-09-30 14:28 | Outpatient (CLI) | payer OTHER ==
--- NOTE | 2022-09-30 15:01 | Sleep Patient Instructions ---
Sleep Center Visit Summary - Patient Visit Information Reason for Visit: First compliance follow up - Patient Instructions Additional Instructions: You were here for follow up of CPAP therapy. You will be continued on CPAP therapy with changed pressure to 8-12 cmH2O. Please let us know if the pressure change is uncomfortable and we can make further adjustments of the pressure. You should follow up with sleep care in 1-2 months. You may contact us sooner for any questions or concerns. - Clinic Information Contact: [facility] [address] [place] [address] [email or web address] T: [phone]
[2022-09-30 15:27] VITALS: BP 128/72
--- NOTE | 2022-09-30 15:27 | SLEEP CARE CONSULTATION ---
Information from patient questionnaire entered by Lio Gaona. I have reviewed and concur with the information entered by Lio Gaona. This document represents the service I personally performed and the decisions made by , Ana Mraia Montgomery ARNP. History of Present Illness Service Date and Time: 09/30/2022 1428 Previous diagnosis: Moderate, Obstructive Sleep Apnea-Hypopnea Syndrome AHI: 28.8 (in 2021) Reason for follow up: first compliance Equipment type: CPAP (RESMED Airsense 10, s/u 04/2022, SD CARD NEEDED) Equipment obtained from: Other ([facility]; getting supplies) Mask style: Full face Backup mask available: Yes (old mask) Prior sleep studies: No Type of Sleep Study: Polysomnography (COMPLETED 03/18/2022) HPI additional information: PRATIK THORPE was diagnosed to have moderate, AHI 28.8, obstructive sleep apnea- hypopnea syndrome and returned today for CPAP therapy first compliance follow- up. Sleep Study - Results Type of Sleep Study: Polysomnography (COMPLETED 03/18/2022) Prior sleep studies: No CPAP Compliance Data - Data Reviewed with Patient Average duration of nightly device use: 2 hours 16 minutes Compliance rate %: 3 (40/90 days used) Current pressure setting (cmH2O): 4-15 (median 7.9, avg 10.8, max 11.5) Average residual AHI: 2.3 Central apnea: 0.3 Obstructive apnea: 1.3 Average large leak: 0.5 L/min Subjective Missed days of use due to: reports: travel, other (irregular sleep schedule) Patient concerns: reports: air blowing in eyes, mask leak noise, condensation in mask/hose. denies: aerophagia, mask discomfort, nasal congestion, dry mouth, nose, throat, epistaxis Observed to snore while using device: No Current pressure setting perceived as: comfortable On therapy, patient: reports: sleeping better, awakening more refreshed. denies: drowsiness while driving Initial [place] Sleepiness Scale score: 17 (02/24/22) Current [place] Sleepiness Scale score: 12 (09/30/22) Allergies and Home Medications Known drug allergies: No Drug allergies reviewed: Yes Home medication list reviewed: Yes (no changes) Allergy and home medication list: Allergies No Known Drug Allergies Allergy (Verified 05/11/23 08:17) Review of Systems Review of systems same as previous: Yes (no changes) Physical Exam Vital signs obtained and entered by: LIO Lucia MA Blood Pressure: 128/72 (LEFT ARM) Cuff size: regular Heart Rate: 108 O2 Saturation: 98 Height: 6 ft 2 in Weight: 233 lb 3.2 oz Body Mass Index: 29.9 BMI Classification: Overweight Impression and Plan 1. Obstructive Sleep Apnea-Hypopnea Syndrome, moderate, with poor treatment compliance and good apnea control. On CPAP therapy, the patient has better sleep quality and is more rested in the morning. He has a very irregular sleep schedule but he tries to wear the CPAP mask when he remembers. Many times he will fall asleep without the mask on. The patients pressure will be changed to autoCPAP 8-12 cmH20 to reflect pressures being used. Patient advised to contact me if pressure change is uncomfortable so that it can be adjusted. Goals for apnea control discussed. Patient's apnea severity and rationale for treatment to reduce apnea, improve sleep quality and reduce cardiovascular and cerebrovascular events was reviewed. 2. Overweight, unspecified. Currently patients BMI is 29.9. Obesity increases the risk of apnea, CPAP pressure requirements and overall health risks especially cardiovascular and diabetes. Thus patient is advised to lose weight. * Change auto CPAP pressure to 8-12 cmH2O * Notify me if snoring with mask or feeling that the pressure is too much or too little * Attempt to lose weight * Call this office if any problems using CPAP * Return for follow up in 1-2 months, or sooner if concerns arise Counseling Topics: Weight loss health impact Visit Type: In Office Time Spent with Patient (minutes): 26 Provider Statement: I spent 100% of the Face to Face Visit with the patient with greater than 50% spent counseling the patient and coordination of care.
== END 2022-09-30 14:29 | disposition home or self-care (01) ==
LOC: SC 14:28
PROVIDERS: ATTEND Nurse Practitioner Family
DX: G47.33 Obstructive sleep apnea (adult) (pediatric) (principal); E66.3 Overweight; Z68.29 Body mass index [BMI] 29.0-29.9, adult
CPT/HCPCS: 99212; 99213

== ENCOUNTER 2022-11-18 14:32 | Outpatient (CLI) | payer OTHER ==
--- NOTE | 2022-11-18 15:14 | SLEEP CARE CONSULTATION ---
Information from patient questionnaire entered by Esme Gaona. I have reviewed and concur with the information entered by Esme Gaona. This document represents the service I personally performed and the decisions made by , Ana Maria Montgomery ARNP. History of Present Illness Service Date and Time: 11/18/2022 1432 Previous diagnosis: Moderate, Obstructive Sleep Apnea-Hypopnea Syndrome AHI: 28.8 (in 2021) Reason for follow up: other (2 MONTH F/U) Equipment type: CPAP (RESMED Airsense 10, s/u 04/2022, SD CARD NEEDED) Equipment obtained from: Other ([facility]; getting supplies) Mask style: Full face Backup mask available: Yes (old mask) Last cushion change: few weeks Prior sleep studies: No Type of Sleep Study: Polysomnography (COMPLETED 03/18/2022) HPI additional information: PRATIK THORPE was diagnosed to have moderate, AHI 28.8, obstructive sleep apnea- hypopnea syndrome and returned today for CPAP therapy two month follow-up. Sleep Study - Results Type of Sleep Study: Polysomnography (COMPLETED 03/18/2022) Prior sleep studies: No CPAP Compliance Data - Data Reviewed with Patient Average duration of nightly device use: 3 hours 6 minutes Compliance rate %: 13 (34/60 days used) Current pressure setting (cmH2O): 8-12 Average residual AHI: 1.9 Central apnea: 0.5 Obstructive apnea: 0.9 Hypopnea: 0.4 Average large leak: 0.2 L/pm Subjective Missed days of use due to: reports: other (will fall asleep without mask) Patient concerns: reports: air blowing in eyes, mask leak noise, condensation in mask/hose. denies: aerophagia, mask discomfort, nasal congestion, dry mouth, nose, throat, epistaxis Observed to snore while using device: No Current pressure setting perceived as: comfortable On therapy, patient: reports: sleeping better, awakening more refreshed, being more awake and alert during the day, more rested overall. denies: drowsiness while driving Initial [place] Sleepiness Scale score: 17 (02/24/22) Current [place] Sleepiness Scale score: 12 (11/18/22) Allergies and Home Medications Known drug allergies: No Drug allergies reviewed: Yes Home medication list reviewed: Yes (no changes) Allergy and home medication list: Allergies No Known Drug Allergies Allergy (Verified 11/17/22 14:32) Review of Systems Review of systems same as previous: Yes (no changes) Physical Exam Vital signs obtained and entered by: ESME Lucia MA Blood Pressure: 132/78 (LEFT ARM) Cuff size: regular Heart Rate: 75 O2 Saturation: 98 Height: 6 ft 2 in Weight: 233 lb 6.4 oz Body Mass Index: 29.9 BMI Classification: Overweight Impression and Plan 1. Obstructive Sleep Apnea-Hypopnea Syndrome, moderate, with poor treatment compliance and good apnea control. On CPAP therapy, the patient has better sleep quality and is more rested overall. He does have significant improvement of his sleep apnea. He has brought up his compliance by 10 percent. His [place] score has improved from 17 of 24 to 12 of 24. He is trying to put mask on if he is feeling tired when he is watching TV or looking on his phone to try to keep from falling asleep without his mask. He has increased time in mask average since doing this. I advised him to continue to increase time in the mask. He voiced understanding. He will follow up again in 1-2 months to recheck compliance. Patient's apnea severity and rationale for treatment to reduce apnea, improve sleep quality and reduce cardiovascular and cerebrovascular events was reviewed. He is requesting a letter stating it is okay for him to give blood. He used to give blood all the time but they will no longer allow this without clearance from his physician with his diagnosis of RM. A letter was completed and given to patient. He should be able to give blood without any complications to his health. 2. Overweight, unspecified. Currently patients BMI is 29.9. Obesity increases the risk of apnea, CPAP pressure requirements and overall health risks especially cardiovascular and diabetes. Thus patient is advised to lose weight. * Continue auto CPAP pressure at 8-12 cmH2O * Notify me if snoring with mask or feeling that the pressure is too much or too little * Attempt to lose weight * Call this office if any problems using CPAP * Return for follow up in 1-2 months, or sooner if concerns arise Counseling Topics: Weight loss health impact Visit Type: In Office Time Spent with Patient (minutes): 23 Provider Statement: I spent 100% of the Face to Face Visit with the patient with greater than 50% spent counseling the patient and coordination of care.
[2022-11-18 15:26] VITALS: BP 132/78
== END 2022-11-18 14:33 | disposition home or self-care (01) ==
LOC: SC 14:32
PROVIDERS: ATTEND Nurse Practitioner Family
DX: G47.33 Obstructive sleep apnea (adult) (pediatric) (principal); E66.3 Overweight; Z68.29 Body mass index [BMI] 29.0-29.9, adult
CPT/HCPCS: 99212; 99213

== ENCOUNTER 2022-12-30 23:41 | Emergency (ER) | payer OTHER ==
[2022-12-30] MEDS ORDERED: LIDOCAINE 1% 2 ML VIAL MC ONE (23:48)
[2022-12-30] MEDS ORDERED: cefTRIAXone 500 MG VIAL IM STA (23:48)
--- NOTE | 2022-12-30 23:51 | ED Physician Documentation ---
PD HPI MALE - Stated complaint Stated Complaint: MALE - History obtained from History obtained from: Patient - Additional information Additional information: 27-year-old male presents for STD treatment. He states that 1 week ago he was having intercourse and the condom broke. He states he feels a "tingling" at the tip of his penis when he urinates and he is here for STI treatment. Denies pain. Review of Systems Constitutional: denies: Fever, Chills : reports: Dysuria. denies: Frequency, Hesitancy, Unable to Void, Incontinent, Hematuria, Discharge PD PAST MEDICAL HISTORY - Past Medical History Cardiovascular: None Respiratory: None Neuro: None Endocrine/Autoimmune: None GI: None : Other HEENT: None Psych: Depression Musculoskeletal: None Derm: None - Past Surgical History Past Surgical History: No - Present Medications Home Medications: Ambulatory Orders Medication Instructions Recorded Confirmed Doxycycline Hyclate 100 mg PO BID #20 cap 05/05/22 11/18/22 Doxycycline Hyclate 100 mg PO BID #14 tab 12/30/22 - Allergies Allergies/Adverse Reactions: Allergies Allergy/AdvReac Type Severity Reaction Status Date / Time No Known Drug Allergies Allergy Verified 12/30/22 23:57 - Social History Does the pt smoke?: No Smoking Status: Never smoker Does the pt drink ETOH?: Yes Does the pt have substance abuse?: No - Immunizations Immunizations are current?: Yes - POLST Patient has POLST: No PD ED PE NORMAL - Vitals Vital signs reviewed: Yes - General General: Alert and oriented X 3, No acute distress, Well developed/nourished - HEENT HEENT: Atraumatic - Neck Neck: Supple, no meningeal sign - Derm Derm: Normal color, Warm and dry, No rash - Extremities Extremities: No deformity, No tenderness to palpate, Normal ROM s pain, No edema - Neuro Neuro: Alert and oriented X 3, international nurse 2-12 intact, No motor deficit, Normal speech - Psych Psych: Normal mood, Normal affect Results - Vitals Vitals: Vital Signs - 24 hr 12/30/22 12/31/22 23:42 00:22 Temperature 36.5 C Heart Rate 107 H 111 H Respiratory 16 16 Rate Blood Pressure 152/97 H 128/66 O2 Saturation 97 97 Oxygen O2 Source Room air PD Medical Decision Making - ED course Complexity details: reviewed results, re-evaluated patient, considered differential, d/w patient ED course: Patient presenting for STI treatment. Offered "wait and see" approach based on results of GC/chlamydia/trich swab, shelbie patient requesting empiric treatment. I counseled the patient that he would be treated for gonorrhea and chlamydia from the ER, however there are numerous other sexual transmitted infections that are not being tested or treated for today. He was counseled to follow-up with health department for comprehensive testing and treatment. Departure - Departure Disposition: 01 Home, Self Care Clinical Impression: Urethritis Condition: Stable Instructions: ED STD Male Treated Prescriptions: Doxycycline Hyclate 100 mg PO BID #14 tab Comments: Be advised that we are only treating you for gonorrhea and chlamydia today. We are not testing or treating for HIV, HPV, syphilis, herpes, or other sexually transmitted infections. If you are concerned that you may have one of these infections you need to go to the nearest health department for testing and potential treatment. your prescriptions have been sent to [facility] in [place] Discharge Date/Time: 12/31/22 00:22
[2022-12-31 00:05] VITALS: O2SAT 97
[2022-12-31 00:27] VITALS: BP 128/66
[2022-12-31 05:29] LABS: CHLAMYDIA TRACHOMATIS DNA NEGATIVE (NEGATIVE); NEISSERIA GONORRHOEAE DNA NEGATIVE (NEGATIVE); TRICHOMONAS VAGINALIS DNA NEGATIVE (NEGATIVE)
== END 2022-12-31 00:22 | disposition home or self-care (01) ==
LOC: ED 23:41
DX: Z20.2 Contact with and (suspected) exposure to infections with a predominantly sexual mode of transmission (principal); N34.2 Other urethritis
CPT/HCPCS: 87491; 87591; 87661; 96372; 99283

== ENCOUNTER 2023-01-16 21:40 | Emergency (ER) | payer OTHER ==
[2023-01-16] MEDS ORDERED: cefTRIAXone 1 GM VIAL IM STA (21:56)
[2023-01-16] MEDS ORDERED: LIDOCAINE 1% 2 ML VIAL MC ONE (21:56)
--- NOTE | 2023-01-16 21:59 | ED Physician Documentation ---
History of Present Illness - Stated complaint Stated Complaint: - Chief complaint Chief Complaint: General - History obtained from History obtained from: Patient - Additonal information Additional information: 27-year-old male with history of STI presents with penile discharge for the past couple days after having unprotected sex. Denies fever, abdominal pain, back pain. PD PAST MEDICAL HISTORY - Past Medical History Cardiovascular: None Respiratory: None Neuro: None Endocrine/Autoimmune: None GI: None : Other HEENT: None Psych: Depression Musculoskeletal: None Derm: None - Past Surgical History Past Surgical History: No - Present Medications Home Medications: Ambulatory Orders Medication Instructions Recorded Confirmed Doxycycline Hyclate 100 mg PO BID #20 cap 05/05/22 11/18/22 Doxycycline Hyclate 100 mg PO BID #14 tab 12/30/22 Doxycycline Hyclate 100 mg PO BID 10 Days #20 tab 01/16/23 - Allergies Allergies/Adverse Reactions: Allergies Allergy/AdvReac Type Severity Reaction Status Date / Time No Known Drug Allergies Allergy Verified 01/16/23 21:44 - Social History Does the pt smoke?: No Smoking Status: Never smoker Does the pt drink ETOH?: Yes Does the pt have substance abuse?: No - Immunizations Immunizations are current?: Yes - POLST Patient has POLST: No PD ED PE NORMAL - Vitals Vital signs reviewed: Yes - General General: Alert and oriented X 3, No acute distress, Well developed/nourished - HEENT HEENT: Atraumatic, PERRL, EOMI - Neck Neck: Supple, no meningeal sign - Abdomen Abdomen: Non tender, Non distended - Male Male : Pt declined Results - Vitals Vitals: Vital Signs - 24 hr 01/16/23 21:44 Temperature 36.5 C Heart Rate 81 Respiratory 16 Rate Blood Pressure 130/80 O2 Saturation 96 Oxygen O2 Source Room air PD Medical Decision Making - ED course ED course: 27-year-old male presents with penile discharge concerning for STI. Antibiotics sent to pharmacy. One-time dose of Rocephin provided here in the emergency department. STI testing sent. Plan to follow-up with primary care provider. Counseling provided about safe sex practices. Departure - Departure Clinical Impression: Penile discharge Condition: Stable Instructions: STDs Prescriptions: Doxycycline Hyclate 100 mg PO BID 10 Days #20 tab Comments: You were seen in the emergency department for penile discharge and got antibiotic rocephin shot in the ED. Prescription for doxycycline sent electronically to your pharmacy. Please follow-up with your primary care provider and return to the emergency department if you have any new or worsening symptoms or other concerns. Forms: PCP List
[2023-01-16 23:34] VITALS: BP 139/81; O2SAT 97
[2023-01-17 01:01] LABS: NEISSERIA GONORRHOEAE DNA NEGATIVE (NEGATIVE); TRICHOMONAS VAGINALIS DNA NEGATIVE (NEGATIVE)
[2023-01-17 01:03] LABS: CHLAMYDIA TRACHOMATIS DNA POSITIVE (NEGATIVE)
== END 2023-01-16 23:28 | disposition home or self-care (01) ==
LOC: ED 21:40
DX: R36.9 Urethral discharge, unspecified (principal)
CPT/HCPCS: 87491; 87591; 87661; 96372; 99283